=== PATIENT | male | born 1985 | race Caucasian/White ===

== ENCOUNTER 2021-08-26 12:14 | Inpatient (IN) | payer MEDICAID ==
[~2021-08-26] VITALS: Ht 172.7 cm; Wt 76.7 kg
[~2021-08-26 12:14] MED LIST: NOCURR
[2021-08-26] MEDS ORDERED: LOPERAMIDE HCL 2 MG CAPSULE PO PRN (13:00)
[2021-08-26] MEDS ORDERED: OLANZapine 5 MG RAPDIS TABLET PO PRN (13:00)
[2021-08-26] MEDS ORDERED: TUBERCULIN, PURIFIED PROTEIN DERIVATIVE 5 TU/0.1 ML SYRINGE ID ONE (13:00)
[2021-08-26] MEDS ORDERED: MAGNESIUM HYDROXIDE SUSPENSION 30 ML UDCUP PO PRN (13:00)
[2021-08-26] MEDS ORDERED: GuaiFENesin/D-METHORPHAN [SUGAR-FREE] 200-20MG/10 ML SYRUP UDCUP PO PRN (13:00)
[2021-08-26] MEDS ORDERED: ZOLPIDEM TARTRATE 10 MG TABLET PO PRN (13:00)
[2021-08-26] MEDS ORDERED: HydrOXYzine PAMOATE 50 MG CAPSULE PO PRN (13:00)
[2021-08-26] MEDS ORDERED: PROMETHAZINE HCL 25 MG TABLET PO PRN (13:00)
[2021-08-26] MEDS ORDERED: ACETAMINOPHEN 325 MG TABLET PO PRN (13:00)
[2021-08-26] MEDS ORDERED: MAG HYDROX/AL HYDROX/SIMETH ES 30 ML SUSPENSION UDCUP PO PRN (13:00)
[2021-08-26 13:23] LABS: GLUCOMETER DEV NAME(LOC) POC.BV
[2021-08-26 14:21] VITALS: BP 136/84
[2021-08-26 16:26] VITALS: BP 140/90
[2021-08-26] MEDS: LORazepam 2 MG TABLET PO PRN (16:39)
[2021-08-26] MEDS: THIAMINE 100 MG TABLET PO SCH (16:39)
[2021-08-26] MEDS: NICOTINE 21 MG/24 HOUR PATCH TD SCH (16:39)
[2021-08-26] MEDS ORDERED: OLANZapine 5 MG RAPDIS TABLET PO SCH (21:00)
[2021-08-26] MEDS ORDERED: CloNIDine HCL 0.1 MG TABLET PO PRN (21:00)
[2021-08-26] MEDS: MELATONIN 5 MG TABLET PO SCH (21:19)
[2021-08-26] MEDS: NALTREXONE HCL 50 MG TABLET PO SCH (21:19)
[2021-08-27 00:25] VITALS: BP 120/72
[2021-08-27 07:16] LABS: BASOPHILS % (AUTO) 0.7 % (0.0-2.0); EOSINOPHILS % (AUTO) 2.8 % (1.0-6.0); HEMATOCRIT 41.2 % (41-53); LYMPHOCYTES # (AUTO) 1.1 K/uL (1.0-4.8); LYMPHOCYTES % (AUTO) 23.9 % (22.0-44.0); MEAN CORPUSCULAR HEMOGLOBIN 31.5 pg (26.0-34.0); MEAN CORPUSCULAR HGB CONC 34.1 G/dL (31.0-37.0); MEAN CORPUSCULAR VOLUME 92 fL (80-100); MONOCYTES # (AUTO) 0.4 K/uL (0.1-1.0); MONOCYTES % (AUTO) 8.7 % (2.0-9.0); NEUTROPHILS % (AUTO) 63.9 % (40.0-70.0); PLATELET COUNT (AUTO) 213 K/uL (150-450); RED BLOOD CELL COUNT(AUTO) 4.46 MIL/uL (4.50-5.90); RED CELL DISTRIBUTION WIDTH 13.8 % (11.5-14.5)
[2021-08-27 07:31] LABS: HEMOGLOBIN A1C 5.2 % (3.8-5.6)
[2021-08-27 07:43] LABS: ALANINE AMINOTRANSFERASE 19 U/L (12-78); ALBUMIN 3.8 g/dL (3.4-5.0); ALKALINE PHOSPHATASE 72 U/L (46-116); ANION GAP 1 mmol/L (8-16); ASPARTATE AMINOTRANSFERASE 11 U/L (15-37); BILIRUBIN,TOTAL 0.3 mg/dL (0.1-1.0); CALCIUM, TOTAL 8.8 mg/dL (8.8-10.5); CARBON DIOXIDE 32 mmol/L (22-29); CHLORIDE 109 mmol/L (98-107); CHOL/HDL RATIO 2.2 (4.2-7.3); CHOLESTEROL 160 mg/dL (131-200); CREATININE 0.83 mg/dL (0.60-1.30); FREE T4 (FREE THYROXINE) 0.72 ng/dL (0.76-1.46); GLOMERULAR FILTR. RATE CALC > 60 mL/min (>60); GLUCOSE,RANDOM 103 mg/dL (70-110); HDL CHOLESTEROL 72 mg/dL (40-60); LDL CHOL (CALC.) 77 mg/dL (0-130); POTASSIUM 4.2 mmol/L (3.5-5.1); SODIUM SERUM 142 mmol/L (136-145); THYROID STIMULATING HORMONE 2.34 uIU/mL (0.36-3.74); TRIGLYCERIDES 53 mg/dL (15-150); UREA NITROGEN, BLOOD 13 mg/dL (7-18)
[2021-08-27] MEDS: THIAMINE 100 MG TABLET PO SCH ×2 (08:14→16:04)
[2021-08-27] MEDS: BuPROPion HCL XL 150 MG ER TABLET PO SCH (08:14)
[2021-08-27] MEDS: MULTIVITAMINS WITH MINERALS, THERAPEUTIC TABLET PO SCH (08:14)
[2021-08-27] MEDS: FOLIC ACID 1 MG TABLET PO SCH (08:14)
[2021-08-27] MEDS: OMEGA-3/DHA/EPA/FISH OIL 1,000 MG CAPSULE PO SCH (08:14)
[2021-08-27] MEDS: LORazepam 2 MG TABLET PO PRN (08:15)
[2021-08-27 10:05] VITALS: BP 112/70
[2021-08-27] MEDS: NICOTINE 21 MG/24 HOUR PATCH TD SCH (12:30)
[2021-08-27 16:10] VITALS: BP 136/84
[2021-08-27] MEDS: OLANZapine 10 MG RAPDIS TABLET PO SCH (20:40)
[2021-08-27] MEDS: MELATONIN 5 MG TABLET PO SCH (20:40)
[2021-08-27] MEDS: NALTREXONE HCL 50 MG TABLET PO SCH (20:40)
[2021-08-28 00:14] VITALS: BP 123/79
[2021-08-28] MEDS: LORazepam 2 MG TABLET PO PRN (04:24)
[2021-08-28] MEDS: OMEGA-3/DHA/EPA/FISH OIL 1,000 MG CAPSULE PO SCH (08:05)
[2021-08-28] MEDS: FOLIC ACID 1 MG TABLET PO SCH (08:06)
[2021-08-28] MEDS: BuPROPion HCL XL 150 MG ER TABLET PO SCH (08:06)
[2021-08-28] MEDS: NICOTINE 21 MG/24 HOUR PATCH TD SCH (08:06)
[2021-08-28] MEDS: MULTIVITAMINS WITH MINERALS, THERAPEUTIC TABLET PO SCH (08:06)
[2021-08-28] MEDS: THIAMINE 100 MG TABLET PO SCH ×2 (08:06→16:35)
[2021-08-28 08:08] VITALS: BP 140/76
[2021-08-28] MEDS ORDERED: OLAN10TA26 PO (15:30)
[2021-08-28] MEDS ORDERED: BUPR-49 PO (15:30)
[2021-08-28] MEDS ORDERED: MELA5TAB40 PO (15:30)
[2021-08-28] MEDS ORDERED: NALT50TA PO (15:30)
[2021-08-28] MEDS ORDERED: OMEG-135 PO (15:30)
[2021-08-28 16:32] VITALS: BP 129/79
[2021-08-28] MEDS: NALTREXONE HCL 50 MG TABLET PO SCH (20:05)
[2021-08-28] MEDS: OLANZapine 10 MG RAPDIS TABLET PO SCH (20:05)
[2021-08-28] MEDS: MELATONIN 5 MG TABLET PO SCH (20:05)
[2021-08-29 05:33] VITALS: BP 123/76
[2021-08-29 08:19] VITALS: BP 140/79
[2021-08-29] MEDS: OMEGA-3/DHA/EPA/FISH OIL 1,000 MG CAPSULE PO SCH (08:20)
[2021-08-29] MEDS: THIAMINE 100 MG TABLET PO SCH ×2 (08:20→16:07)
[2021-08-29] MEDS: NICOTINE 21 MG/24 HOUR PATCH TD SCH (08:20)
[2021-08-29] MEDS: FOLIC ACID 1 MG TABLET PO SCH (08:20)
[2021-08-29] MEDS: MULTIVITAMINS WITH MINERALS, THERAPEUTIC TABLET PO SCH (08:20)
[2021-08-29] MEDS ORDERED: BuPROPion HCL XL 150 MG ER TABLET PO SCH (09:00)
[2021-08-29] MEDS ORDERED: INFLUENZA VIRUS VACCINE QVS 2021-22 (6MO+)/PF 60 MCG/0.5 ML SYRINGE IM. ONE (14:15)
== END 2021-08-29 17:26 | disposition home or self-care (01) | DRG 750 ==
LOC: B3A 12:57 → B2S 08-27 15:07
PROVIDERS: ADMIT Psychiatry & Neurology Psychiatry; ATTEND Psychiatry & Neurology Psychiatry
DX: F25.1 Schizoaffective disorder, depressive type (principal); Z59.00 Homelessness unspecified; F12.90 Cannabis use, unspecified, uncomplicated; F14.90 Cocaine use, unspecified, uncomplicated; Z20.822 Contact with and (suspected) exposure to COVID-19; F15.10 Other stimulant abuse, uncomplicated; F60.0 Paranoid personality disorder; I10 Essential (primary) hypertension; F41.0 Panic disorder [episodic paroxysmal anxiety]; F90.9 Attention-deficit hyperactivity disorder, unspecified type; Z55.9 Problems related to education and literacy, unspecified; Z63.9 Problem related to primary support group, unspecified; Z65.3 Problems related to other legal circumstances
CPT/HCPCS: 80053; 80061; 83036; 84439; 84443; 85025; 86592; Q9967

== ENCOUNTER 2023-01-12 04:04 | Emergency (ER) | payer MEDICAID, OTHER ==
[~2023-01-12] VITALS: Ht 172.7 cm; Wt 77.3 kg
[~2023-01-12 04:04] MED LIST changes: +BUPR-49 PO; +MELA5TAB40 PO; +NALT50TA PO; -NOCURR; +OLAN10TA26 PO; +OMEG-135 PO
[2023-01-12] MEDS ORDERED: IPRATROPIUM BROMIDE 0.5 MG/2.5 ML NEB SOLUTION NEB ONE ×2 (04:15→04:18)
[2023-01-12] MEDS ORDERED: ALBUTEROL SULFATE 2.5 MG/0.5 ML NEB SOLUTION NEB ONE ×2 (04:15→04:18)
[2023-01-12 04:27] VITALS: BP 150/100
[2023-01-12 04:30] LABS: BASOPHILS % (AUTO) 0.2 % (0.0-2.0); EOSINOPHILS % (AUTO) 0 % (1.0-6.0); HEMATOCRIT 38.8 % (41-53); HEMOGLOBIN 13.3 g/dL (13.5-17.5); LYMPHOCYTES # (AUTO) 0.3 K/uL (1.0-4.8); LYMPHOCYTES % (AUTO) 2.2 % (22.0-44.0); MEAN CORPUSCULAR HEMOGLOBIN 31.7 pg (26.0-34.0); MEAN CORPUSCULAR HGB CONC 34.2 G/dL (31.0-37.0); MEAN CORPUSCULAR VOLUME 93 fL (80-100); NEUTROPHILS # (AUTO) 13.6 K/uL (1.8-7.7); PLATELET COUNT (AUTO) 218 K/uL (150-450); RED BLOOD CELL COUNT(AUTO) 4.19 MIL/uL (4.50-5.90); RED CELL DISTRIBUTION WIDTH 13.4 % (11.5-14.5)
[2023-01-12 04:32] LABS: NEUTROPHILS % (AUTO) 90.6 % (40.0-70.0)
[2023-01-12 04:44] LABS: ANION GAP 10 mmol/L (8-16); CALCIUM, TOTAL 8.4 mg/dL (8.8-10.5); CARBON DIOXIDE 26 mmol/L (22-29); CHLORIDE 99 mmol/L (98-107); CREATININE 0.86 mg/dL (0.60-1.30); GLOMERULAR FILTR. RATE CALC > 60 mL/min (>60); GLUCOSE,RANDOM 131 mg/dL (70-110); POTASSIUM 3.9 mmol/L (3.5-5.1); SODIUM SERUM 135 mmol/L (136-145); UREA NITROGEN, BLOOD 11 mg/dL (7-18)
[2023-01-12 04:49] LABS: ALANINE AMINOTRANSFERASE 16 U/L (12-78); ALBUMIN 4.2 g/dL (3.4-5.0); ALKALINE PHOSPHATASE 65 U/L (46-116); ASPARTATE AMINOTRANSFERASE 13 U/L (15-37); BILIRUBIN,TOTAL 0.6 mg/dL (0.1-1.0); TOTAL PROTEIN, SERUM 7.3 g/dL (6.4-8.2)
[2023-01-12 04:52] LABS: B-TYPE NATRIURETIC PEPTIDE 20 pg/mL (0-100)
== END 2023-01-12 07:00 | disposition left against medical advice (07) ==
LOC: EMS 04:05
DX: Z53.21 Procedure and treatment not carried out due to patient leaving prior to being seen by health care provider (principal)
CPT/HCPCS: 80053; 83880; 84484; 85025; 93005; 99281